=== PATIENT | male | born 1975 | race Caucasian/White ===

== ENCOUNTER 2017-12-19 05:14 | Emergency (ER) | payer MEDICARE ==
[~2017-12-19] VITALS: Ht 167.6 cm; Wt 68.0 kg
[2017-12-19 05:23] VITALS: BP 151/94; PULSE 85; RESP 18
[2017-12-19] MEDS ORDERED: ORPHENADRINE INJ 60 MG/2 ML AMP IM ONE (05:45)
[2017-12-19] MEDS ORDERED: DEXAMETHASONE SOD PHOS 4 MG/ML VIAL IM ONE (05:45)
[2017-12-19] MEDS ORDERED: KETOROLAC TROMETHAMINE 60 MG/2 ML (IM) VIAL IM ONE (05:45)
--- NOTE | 2017-12-19 05:57 | PD ---
HPI Chief Complaint: Pain: Acute or Chronic Time Seen by Provider: 05:38 Travel History International Travel<30 days: No Contact w/Intl Traveler<30days: No Traveled to known affect area: No History of Present Illness HPI 42-year-old male presents to the emergency department for complaint of severe left hip and buttock pain with radiation to the left lower extremity. Patient reports previous injury to the left hip and more recently had a twisting type injury. Patient denies any bladder or bowel dysfunction or saddle anesthesia and denies any new lower extremity numbness weakness except for associated with pain. Patient denies any fall. Patient reports pain not relieved with ibuprofen. [place]. Patient rates his pain 10/ 10 intensity. PFSH Past Medical History Narrative Medical Back surgery tobacco use; nursing notes reviewed Past Surgical History Neurologic Surgery: Yes (c5-c6 fusion) Social History Alcohol Use: No Tobacco Use: Yes Substance Use: No Allergies-Medications (Allergen,Severity, Reaction): Coded Allergies: No Known Allergies (Unverified , 12/19/17) Reported Meds & Prescriptions Reported Meds & Active Scripts Active No Active Prescriptions or Reported Medications Review of Systems Except as stated in HPI: all other systems reviewed are Neg General / Constitutional: No: Fever, Chills HENT: No: Congestion Cardiovascular: No: Chest Pain or Discomfort Respiratory: No: Shortness of Breath Gastrointestinal: No: Nausea, Vomiting, Abdominal Pain Genitourinary: No: Dysuria, Flank Pain Musculoskeletal: Positive: Cramping, Pain (left hip radiating to LLE), No: Myalgias, Arthralgias, Limited ROM, Weakness, Edema Skin: No Rash, No Itching Neurologic: No: Weakness, Dizziness, Syncope, Focal Abnormalities, Coordination Problem Psychiatric: No: Anxiety Endocrine: No: Heat Intolerance, Cold Intolerance Hematologic/Lymphatic: No: Easy Bruising Physical Exam Narrative GENERAL: Well-developed well-nourished male no acute distress no respiratory distress SKIN: Warm and dry. HEAD: Normocephalic. EYES: No scleral icterus. No injection or drainage. NECK: Supple, trachea midline. No JVD or lymphadenopathy. CARDIOVASCULAR: Regular rate and rhythm without murmurs, gallops, or rubs. RESPIRATORY: Breath sounds equal bilaterally. No accessory muscle use. GASTROINTESTINAL: Abdomen soft, non-tender, nondistended. MUSCULOSKELETAL: No cyanosis, or edema. No ecchymosis no soft tissue swelling no induration no areas of decreased range of motion except for associated with pain limiting range of motion distally extremities neurovascular tendon intact capillary refill brisk less than 2 seconds. Reproducible left SI joint tenderness to direct palpation. Sensory exam intact to light touch. DTRs 2+ and equal without clonus. BACK: Nontender without obvious deformity. Tender to palpation over the SI joint. (L) SLR. No CVA tenderness. Data Data Last Documented VS Vital Signs Date Time Temp Pulse Resp B/P (MAP) Pulse Ox O2 Delivery O2 Flow Rate FiO2 12/19/17 05:23 85 18 151/94 (113) Orders Orders Hip, Uni(Ap&Lat) W Ap Pelvis (12/19/17 ) Spine, Lumbar - Ltd (Ap & Lat) (12/19/17 ) Orphenadrine Inj (Norflex Inj) (12/19/17 05:45) Dexamethasone Inj (Decadron Inj) (12/19/17 05:45) Ketorolac Inj (Toradol Inj) (12/19/17 05:45) MDM Medical Decision Making Medical Screen Exam Complete: Yes Emergency Medical Condition: Yes Medical Record Reviewed: Yes Interpretation(s) Last Impressions Lumbar Spine X-Ray 12/19/17 0000 Signed Impressions: CONCLUSION: No acute fracture. Minimal anterolisthesis of L4 on L5, probably degenerative. Early osteophyte formation in the lower lumbar spine. Hip and Pelvis X-Ray 12/19/17 0000 Signed Impressions: CONCLUSION: No acute findings. Early changes of osteoarthritis in the left hip with early o steophyte formation noted at the inferior left femoral head. Vital Signs Date Time Temp Pulse Resp B/P (MAP) Pulse Ox O2 Delivery O2 Flow Rate FiO2 12/19/17 05:23 85 18 151/94 (113) Differential Diagnosis Sciatica HNP piriformis syndrome sacroiliitis fracture subluxation bursitis; also to consider septic arthritis Narrative Course Patient without fever chills swelling redness or isolated joint pain with reproducible SI tenderness with LLE radiation; given dose of Toradol along with Norflex also injection of Decadron 8 mg IM; imaging studies ordered Imaging study consistent with arthritic changes no subluxation dislocation or fracture identified Patient given tramadol 50 mg 1 dose by mouth Patient stable for outpatient management encouraged to follow-up with local physician/PCP may continue use crutches to assist ambulation as needed Patient is return the emergency department for concerns or change in condition Diagnosis Primary Impression: Sciatica of left side Additional Impression: Osteoarthritis of left hip Referrals: Primary Care Physician call for appointment Patient Instructions: General Instructions Med/Other Pt SpecificInfo: Prescription(s) given Scripts Methocarbamol (Robaxin) 750 Mg Tab 750 MG PO Q6HR for Muscle Spasm, #12 TAB 0 Refills Prov: Kandice Whitt MD 12/19/17 Tramadol (Tramadol) 50 Mg Tab 50 MG PO Q6H Y for PAIN, #7 TAB 0 Refills Prov: Kandice Whitt MD 12/19/17 Methylprednisolone Dosepak (Medrol Dosepak) 4 Mg Dspk 4 MG PO DIRECTED, #1 DSPK 0 Refills Per Pharmacist direction Prov: Kandice Whitt MD 12/19/17 Disposition: 01 DISCHARGE HOME Condition: Stable Kandice Whitt MD Dec 19, 2017 05:57
--- NOTE | 2017-12-19 06:39 | RADRPT ---
EXAM DATE: 12/19/2017 6:33 AM EDT AGE/SEX: 42 years / Male INDICATIONS: Lower back pain. No known injury. CLINICAL DATA: This is the patient's initial encounter. Patient reports that signs and symptoms have been present for 1 week and indicates a pain score of 5/10. MEDICAL/SURGICAL HISTORY: None. None. COMPARISON: No prior exams available for comparison. FINDINGS: No acute fracture. There is a grade 1 anterolisthesis of L4 on L5 with posterior facet arthropathy. N o scoliosis. CONCLUSION: No acute fracture. Minimal anterolisthesis of L4 on L5, probably degenerative. Early osteophyte forma tion in the lower lumbar spine. Electronically signed by: Jesse Strickland MD 12/19/2017 6:37 AM EDT
--- NOTE | 2017-12-19 06:40 | RADRPT ---
EXAM DATE: 12/19/2017 6:35 AM EDT AGE/SEX: 42 years / Male INDICATIONS: Left hip pain. No known injury. CLINICAL DATA: This is the patient's initial encounter. Patient reports that signs and symptoms have been present for 1 week and indicates a pain score of 9/10. MEDICAL/SURGICAL HISTORY: None. None. COMPARISON: No prior exams available for comparison. FINDINGS: Bony structures are intact and in normal alignment. Joints are intact without dislocation or signifi cant arthropathy. Osseous density is normal. Soft tissues are unremarkable. No radiopaque foreign bodies seen. CONCLUSION: No acute findings. Early changes of osteoarthritis in the left hip with early osteophyte formation no leslie at the inferior left femoral head. Electronically signed by: Jesse Strickland MD 12/19/2017 6:38 AM EDT
[2017-12-19] MEDS ORDERED: TRAM50TA PO (07:13)
[2017-12-19] MEDS ORDERED: ROBA750T PO (07:13)
[2017-12-19] MEDS ORDERED: MEDR4PAK PO (07:13)
[2017-12-19 07:47] VITALS: BP 132/78
== END 2017-12-19 07:55 | disposition home or self-care (01) ==
LOC: NEPC 05:14
DX: M54.32 Sciatica, left side (principal); M16.12 Unilateral primary osteoarthritis, left hip; Z72.0 Tobacco use
CPT/HCPCS: 72100; 73502; 96372; 99283; J1100; J1885; J2360

== ENCOUNTER 2017-12-22 11:06 | Emergency (ER) | payer MEDICARE ==
[~2017-12-22] VITALS: Ht 165.1 cm; Wt 65.0 kg
[~2017-12-22 11:06] MED LIST: MEDR4PAK PO; ROBA750T PO; TRAM50TA PO
[2017-12-22 11:49] VITALS: BP 129/64; PULSE 124; RESP 20; TEMP 99.1; O2SAT 96
== END 2017-12-22 13:27 | disposition left against medical advice (07) ==
LOC: NEPD 11:06
DX: M25.552 Pain in left hip (principal)
CPT/HCPCS: 99281